=== PATIENT | female | born 1950 | race Caucasian/White ===

== ENCOUNTER → 2017-08-29 | Outpatient (CLI) | payer MEDICARE ==
--- NOTE | 2017-08-29 14:18 | MM ---
Reason for exam: additional evaluation requested from prior study. Last mammogram was performed 2 years and 1 month ago. History: Patient is postmenopausal and is nulliparous. Family history of breast cancer in aunt and breast cancer in mother at age 86. Benign stereotactic core biopsy of the left breast, June 27, 2001. 2 core biopsies of the left breast. Excisional biopsy of the right breast. Took estrogen for 1 year beginning at age 49. Physical Findings: Nurse did not find any significant physical abnormalities on exam. MG 3D Diag Mammo W/Cad DORCAS Bilateral CC and MLO view(s) were taken. Prior study comparison: August 10, 2015, bilateral MG 3d diag mammo w/cad DORCAS. August 10, 2015, left breast US breast limited LT. There are scattered fibroglandular densities. There are stable benign masses in both breasts. No suspicious abnormality. Post biopsy change biolaterally similar to 2015. No significant new findings when compared with previous films. These results were verbally communicated with the patient and result sheet given to the patient on 08/29/17. ASSESSMENT: Benign, BI-RAD 2 RECOMMENDATION: Routine screening mammogram of both breasts in 1 year.
--- NOTE | 2017-08-29 14:31 | BD ---
EXAMINATION TYPE: MG DEXA axial skeleton. DATE OF EXAM: 08/29/2017 COMPARISON: 2014 CLINICAL HISTORY: Osteoporosis screening. Height: 5'1/2 Weight: 168 FRAX RISK QUESTIONS: Alcohol (3 or more units per day): no Family History (Parent hip fracture): yes Glucocorticoids (More than 3mos): no (Ex: prednisone, prednisolone, methylprednisolone, dexamethasone, and hydrocortisone). History of Fracture in Adulthood: no Secondary Osteoporosis: 1. Type 1 Diabetes: no 2. Hyperthyroidism: no 3. Menopause before 45: no 4. Malnutrition: no 5. Chronic liver disease: no Rheumatoid Arthritis: no Current Tobacco Use: no RISK FACTORS HISTORY OF: Family History of Osteoporosis: Diet low in dairy products/other sources of calcium: Postmenopausal woman: MEDICATIONS: Additional Medications: asthma, acid reflux, cholesterol Additional History: EXAM MEASUREMENTS: Bone mineral densitometry was performed using the [employer] System. Bone mineral density as measured about the Lumbar spine is: ----- L1-L4(G/cm2): 1.061 T Score Values are as follows: ----- L2: -1.1 ----- L3: -1.0 ----- L4: -1.2 ----- L1-L4: -1.0 Bone mineral density has: Decreased -1.8% since study of: 08/10/2015 Bone mineral density about the R hip (g/cm2): 0.783 Bone mineral density about the L hip (g/cm2): 0.768 T Score values are as follows: -----R Neck: -1.8 -----L Neck: -1.9 -----R Total: -0.3 -----L Total: -0.4 Bone mineral density has: Increased 0.5 % since study of: 08/10/2015 IMPRESSION: Osteopenia (T Score between -2.5 and -1) as noted by T score values:L1,L4, Dionisio Hips There is slightly increased risk of fracture and the patient may be considered for treatment. Re-Screen 2-5 years. NOTE: T-SCORE=SD OF THE YOUNG ADULT MEAN.
== END | disposition home or self-care (01) ==
LOC: RADMAMWWP 13:20
PROVIDERS: ATTEND Internal Medicine Critical Care Medicine
DX: R92.8 Other abnormal and inconclusive findings on diagnostic imaging of breast (principal); M85.852 Other specified disorders of bone density and structure, left thigh; M85.851 Other specified disorders of bone density and structure, right thigh; Z79.899 Other long term (current) drug therapy
CPT/HCPCS: 77080; G0204; G0279

== ENCOUNTER → 2018-09-02 | Outpatient (CLI) | payer MEDICARE ==
[2018-09-02 09:29] LABS: Basophils # (A) 0.1 k/uL (0-0.2); Basophils % (A) 2 %; Eosinophils # (A) 0.2 k/uL (0-0.7); Eosinophils % (A) 4 %; HCT 41.8 % (34.0-46.0); HGB 13.7 gm/dL (11.4-16.0); Lymphocytes # (A) 1.7 k/uL (1.0-4.8); Lymphocytes % (A) 34 %; MCH 28.5 pg (25.0-35.0); MCHC 32.8 g/dL (31.0-37.0); Mean Platelet Volume 6.9; Monocytes # (A) 0.3 k/uL (0-1.0); Monocytes % (A) 6 %; Neutrophils # (A) 2.7 k/uL (1.3-7.7); Neutrophils % (A) 54 %; Platelet Count 240 k/uL (150-450); RDW 12.8 % (11.5-15.5); WBC 5.1 k/uL (3.8-10.6)
[2018-09-02 16:11] LABS: Albumin 4.3 g/dL (3.80-4.90); Albumin/Globulin Ratio 2.39 (1.20-2.10); Anion Gap 5.4 mmol/L (4.00-12.00); Calcium 9.6 mg/dL (8.7-10.3); Carbon Dioxide 30.6 mmol/L (21.6-31.8); Globulin 1.8 g/dL (2.1-3.7); Potassium 4.5 mmol/L (3.5-5.5); Total Bilirubin 0.7 mg/dL (0.3-1.2); Total Protein 6.1 g/dL (6.2-8.2)
[2018-09-02 16:19] LABS: T4, Free (Free Thyroxine) 1.1 ng/dL (0.80-1.80)
[2018-09-02 17:13] LABS: Hemoglobin A1C 5.8 % (4.0-6.0)
[2018-09-04 10:23] LABS: LDL Cholesterol,Calculated 77.6 mg/dL (0.0-131.0); VLDL Calculation 43.4 mg/dL (5.00-40.00)
== END | disposition home or self-care (01) ==
LOC: LABWHC1 08:42
PROVIDERS: ATTEND Internal Medicine Critical Care Medicine
DX: Z00.00 Encounter for general adult medical examination without abnormal findings (principal); J45.909 Unspecified asthma, uncomplicated; K21.9 Gastro-esophageal reflux disease without esophagitis; E78.5 Hyperlipidemia, unspecified; E55.9 Vitamin D deficiency, unspecified
CPT/HCPCS: 36415; 80053; 82306; 83036; 84439; 84443; 85025

== ENCOUNTER → 2018-11-11 | Outpatient (CLI) | payer MEDICARE ==
--- NOTE | 2018-11-11 14:56 | MM ---
Reason for exam: additional evaluation requested from prior study. Last mammogram was performed 1 year and 2 months ago. History: Patient is postmenopausal and is nulliparous. Family history of breast cancer in aunt and breast cancer in mother at age 86. Benign stereotactic core biopsy of the left breast, June 27, 2001. 2 core biopsies of the left breast. Excisional biopsy of the right breast. Took estrogen for 1 year beginning at age 49. Physical Findings: Nurse did not find any significant physical abnormalities on exam. MG 3D Diag Mammo W/Cad DORCAS Bilateral CC and MLO view(s) were taken. Prior study comparison: August 29, 2017, bilateral MG 3d diag mammo w/cad DORCAS. August 10, 2015, bilateral MG 3d diag mammo w/cad DORCAS. The breast tissue is heterogeneously dense. This may lower the sensitivity of mammography. There are benign appearing round calcifications bilaterally. Previous mammotome biopsy in the left breast. There is chronic nodularity bilaterally. There is no discrete abnormality. These results were verbally communicated with the patient and result sheet given to the patient on 11/11/18. ASSESSMENT: Benign, BI-RAD 2 RECOMMENDATION: Routine screening mammogram of both breasts in 1 year.
== END | disposition home or self-care (01) ==
LOC: RADMAMWWP 13:36
PROVIDERS: ATTEND Internal Medicine Critical Care Medicine
DX: R92.8 Other abnormal and inconclusive findings on diagnostic imaging of breast (principal)
CPT/HCPCS: 77066; G0279; 77062

== ENCOUNTER 2019-05-09 11:25 | Emergency (ER) | payer MEDICARE ==
[2019-05-09] MEDS ORDERED: DIPH,PERTUS(ACELL)TETVAC-LF 0.5 ML VIAL IM ONE (12:00)
--- NOTE | 2019-05-09 12:00 | ED ---
Fall HPI - General Chief Complaint: Fall Stated Complaint: fall, head injury Time Seen by Provider: 05/09/19 11:39 Source: patient Mode of arrival: wheelchair - History of Present Illness Initial Comments: Patient states that she has had an accidental fall. She did not have lightheadedness or dizziness, chest pain or shortness of breath. She landed on her head. She has no weakness in the arms or legs or hands. She has no change in vision or hearing. She has pain in the right knee and hand, as well as the right side of the head. Nothing makes her pain better or worse. She has taken no medicine for this. She rates the pain 6/10. She has some abrasions. She does not recall her tetanus immunization. She was walking when she had this accidental fall. - Related Data Home Medications Medication Instructions Recorded Confirmed Cetirizine HCl [Zyrtec] 10 mg PO HS 05/09/19 05/09/19 Esomeprazole Magnesium [NexIUM 20 mg PO DAILY 05/09/19 05/09/19 24Hr] Ezetimibe [Zetia] 10 mg PO HS 05/09/19 05/09/19 Montelukast [Singulair] 10 mg PO HS 05/09/19 05/09/19 Allergies Allergy/AdvReac Type Severity Reaction Status Date / Time Penicillins Allergy Rash/Hives Verified 05/09/19 12:53 Review of Systems ROS Statement: Those systems with pertinent positive or pertinent negative responses have been documented in the HPI. ROS Other: All systems not noted in ROS Statement are negative. Past Medical History Past Medical History: Asthma, Hyperlipidemia History of Any Multi-Drug Resistant Organisms: None Reported Past Surgical History: Breast Surgery, Cholecystectomy, Joint Replacement Additional Past Surgical History / Comment(s): multiple biopsies, L knee, cataract Past Psychological History: No Psychological Hx Reported Smoking Status: Never smoker Past Alcohol Use History: None Reported Past Drug Use History: None Reported General Exam Limitations: no limitations General appearance: alert, in no apparent distress Head exam: Present: atraumatic, normocephalic, normal inspection Eye exam: Present: normal appearance, PERRL, EOMI. Absent: scleral icterus, conjunctival injection, periorbital swelling ENT exam: Present: normal exam, mucous membranes moist Neck exam: Present: normal inspection. Absent: tenderness, meningismus, lymp hadenopathy Respiratory exam: Present: normal lung sounds bilaterally. Absent: respiratory distress, wheezes, rales, rhonchi, stridor Cardiovascular Exam: Present: regular rate, normal rhythm, normal heart sounds. Absent: systolic murmur, diastolic murmur, rubs, gallop, clicks GI/Abdominal exam: Present: soft, normal bowel sounds. Absent: distended, tenderness, guarding, rebound, rigid Extremities exam: Present: normal inspection, full ROM, normal capillary refill. Absent: tenderness, pedal edema, joint swelling, calf tenderness Back exam: Present: normal inspection Neurological exam: Present: alert, oriented X3, CN II-XII intact Psychiatric exam: Present: normal affect, normal mood Skin exam: Present: warm, dry, other (Positive for abrasions). Absent: rash Course Vital Signs 05/09/19 11:28 Temperature 97.9 F Pulse Rate 85 Respiratory 18 Rate Blood Pressure 171/88 O2 Sat by Pulse 98 Oximetry Medical Decision Making - Medical Decision Making Patient presents with injuries from an accidental fall. Imaging is all negative. She is stable for discharge. Disposition Clinical Impression: Fall Disposition: HOME SELF-CARE Condition: Good Instructions (If sedation given, give patient instructions): Fall Prevention for Older Adults (ED) Is patient prescribed a controlled substance at d/c from ED?: No Referrals: Ignacio Olsen DO [Primary Care Provider] - 1-2 days
--- NOTE | 2019-05-09 12:25 | XR ---
EXAMINATION TYPE: XR knee limited RT DATE OF EXAM: 05/09/2019 COMPARISON: NONE HISTORY: Pain TECHNIQUE: Two views are submitted. FINDINGS: Joint spaces are preserved. Osseous structures are intact. No acute fracture seen. IMPRESSION: 1. No acute fracture or dislocation.
--- NOTE | 2019-05-09 12:27 | XR ---
EXAMINATION TYPE: XR hand complete RT DATE OF EXAM: 05/09/2019 COMPARISON: NONE HISTORY: Pain TECHNIQUE: Three views are submitted. FINDINGS: The osseous structures are intact. The joint spaces are preserved and there is no acute fracture or dislocation. Mild diffuse osteopenia. IMPRESSION: 1. No definite acute fracture or dislocation if symptoms persist, follow-up study in 7 to 10 days wo uld be suggested
--- NOTE | 2019-05-09 12:31 | CT ---
EXAMINATION TYPE: CT brain ignacia wo con DATE OF EXAM: 05/09/2019 COMPARISON: None HISTORY: Trauma and pain. Right supraorbital and infraorbital injury. CT DLP: 1322.7 mGycm Automated exposure control for dose reduction was used. TECHNIQUE: CT scan of the head and cervical spine are performed without contrast. FINDINGS: There is no acute intracranial hemorrhage, mass effect, or midline shift identified. The ventricles and sulci are within normal limits in size. Periventricular white matter shows patchy lo w attenuation. The globes are intact, there is soft tissue injury noted superimposed orbital location , frontal cephalohematoma, no evident fracture. And the visualized sinuses are clear. Cervical spine is visualized in its entirety from C1 through upper thoracic levels and demonstrates s atisfactory alignment without evidence of acute fracture or dislocation. Prevertebral soft tissue ap pears within normal limits. There is multilevel spondylosis. Loss of disc height is greatest at C4-5, C5-6 and C6-7. Multilevel foraminal encroachment present. Probable calcified granuloma right upper lobe incidentally noted medially The C1-C2 articulation is unremarkable. IMPRESSION: 1. There is no acute fracture or dislocation evident in the cervical spine. 2. No acute intracranial hemorrhage, mass effect, or midline shift is seen.
[2019-05-09 14:25] VITALS: BP 151/62; PULSE 73; RESP 19; TEMP 98.7
== END 2019-05-09 14:24 | disposition home or self-care (01) ==
LOC: EC 11:25
DX: S00.91XA Abrasion of unspecified part of head, initial encounter (principal); S80.211A Abrasion, right knee, initial encounter; S60.511A Abrasion of right hand, initial encounter; J45.909 Unspecified asthma, uncomplicated; E78.5 Hyperlipidemia, unspecified; Z88.0 Allergy status to penicillin; Z79.899 Other long term (current) drug therapy; Z96.652 Presence of left artificial knee joint; Z23 Encounter for immunization; W01.0XXA Fall on same level from slipping, tripping and stumbling without subsequent striking against object, initial encounter; Y93.01 Activity, walking, marching and hiking
CPT/HCPCS: 70450; 72125; 90471; 90715; 99284